=== PATIENT | female | born 1945 | race African-American/Black ===

== ENCOUNTER 2016-06-17 17:18 | Emergency (ER) | payer OTHER ==
[~2016-06-17] VITALS: Ht 152.4 cm; Wt 44.7 kg
[~2016-06-17 17:18] MED LIST: ALPR1TAB7 PO; LISI1TAB11 PO
--- NOTE | 2016-06-17 17:42 | NUR ---
DR MENESES AT THE BEDSIDE.
[2016-06-17 17:47] VITALS: BP 109/73
--- NOTE | 2016-06-17 17:48 | NUR ---
Patient discharged to home in stable conditon. Written and verbal after care instructions given. Patient verbalizes understanding of instructions.
== END 2016-06-17 17:59 | disposition home or self-care (01) ==
LOC: ER 17:21
DX: Z76.0 Encounter for issue of repeat prescription (principal); F41.9 Anxiety disorder, unspecified; I10 Essential (primary) hypertension
CPT/HCPCS: A4663

== ENCOUNTER 2016-07-23 16:15 | Emergency (ER) | payer OTHER ==
[~2016-07-23] VITALS: Ht 154.9 cm; Wt 47.6 kg
[2016-07-23] MEDS ORDERED: ALPRAZOLAM 0.25 MG TABLET PO ONE (17:30)
--- NOTE | 2016-07-23 17:52 | NUR ---
MSE COMPLETED, XANAX PO ADMINISTERED, PT D/C'D HOME, ACI/RX X1 GIVEN. PT AMBULATED W/O DIFF/TOOK ALL BELONGINGS.
[2016-07-23 17:53] VITALS: BP 112/64
[2016-07-23] MEDS ORDERED: ALPRAZOLAM 0.5 MG TABLET ONE (18:00)
== END 2016-07-23 17:54 | disposition home or self-care (01) ==
LOC: ER 16:15
DX: J32.9 Chronic sinusitis, unspecified (principal); F41.9 Anxiety disorder, unspecified; G47.00 Insomnia, unspecified; I10 Essential (primary) hypertension
CPT/HCPCS: 99284; A4663

== ENCOUNTER 2016-10-15 15:18 | Emergency (ER) | payer OTHER ==
[~2016-10-15] VITALS: Ht 154.9 cm; Wt 43.1 kg
--- NOTE | 2016-10-15 16:07 | NUR ---
Patient discharged to home in stable conditon. Written and verbal after care instructions given. Patient verbalizes understanding of instructions.
== END 2016-10-15 16:09 | disposition home or self-care (01) ==
LOC: ER 15:18
DX: Z76.0 Encounter for issue of repeat prescription (principal); I10 Essential (primary) hypertension; F41.9 Anxiety disorder, unspecified
CPT/HCPCS: A4663

== ENCOUNTER 2017-01-11 23:09 | Emergency (ER) | payer OTHER ==
--- NOTE | 2017-01-11 23:34 | NUR ---
PT DECIDED NOT TO BE SEEN.LWBT
== END 2017-01-11 23:35 | disposition left against medical advice (07) ==
LOC: ER 23:13
DX: Z53.21 Procedure and treatment not carried out due to patient leaving prior to being seen by health care provider (principal)

== ENCOUNTER 2017-01-24 13:20 | Emergency (ER) | payer OTHER ==
[~2017-01-24] VITALS: Ht 157.5 cm; Wt 46.3 kg
[2017-01-24] MEDS ORDERED: FERROUS SULFATE 325 MG TABLET PO (13:32)
[2017-01-24] MEDS: AZITHROMYCIN 250 MG TABLET PO ONE (15:51)
--- NOTE | 2017-01-24 15:52 | NUR ---
Patient discharged to home in stable conditon. Written and verbal after care instructions given. Patient verbalizes understanding of instructions. Stressed follow up with pmd or return to ER for worsening s/s.
[2017-01-24] MEDS ORDERED: AZITHROMYCIN 250 MG TABLET ONE ×2 (16:06→16:08)
== END 2017-01-24 15:53 | disposition home or self-care (01) ==
LOC: ER 13:24
DX: J40 Bronchitis, not specified as acute or chronic (principal); I10 Essential (primary) hypertension; F41.9 Anxiety disorder, unspecified; J84.10 Pulmonary fibrosis, unspecified
CPT/HCPCS: 71010; 99283; A4663; Q0144 ×2

== ENCOUNTER 2017-02-13 14:35 | Emergency (ER) | payer OTHER ==
[~2017-02-13] VITALS: Ht 157.5 cm; Wt 45.4 kg
[~2017-02-13 14:35] MED LIST changes: +FERROUS SULFATE 325 MG TABLET PO
--- NOTE | 2017-02-13 14:50 | NUR ---
MSE DONE BY DR MENESES AT BEDSIDE ROOM 04A.
--- NOTE | 2017-02-13 15:08 | NUR ---
DR MENESES MADE PATIENT AWARE OF TEST RESULTS. WILL BE DC HOME.
== END 2017-02-13 15:42 | disposition home or self-care (01) ==
LOC: ER 14:36
DX: F41.9 Anxiety disorder, unspecified (principal); R05 Cough; I10 Essential (primary) hypertension
CPT/HCPCS: 71010; A4663

== ENCOUNTER 2017-02-23 13:43 | Emergency (ER) | payer OTHER ==
[~2017-02-23] VITALS: Ht 157.5 cm; Wt 45.4 kg
--- NOTE | 2017-02-23 20:12 | NUR ---
Patient discharged to home in stable conditon. Written and verbal after care instructions given. Patient verbalizes understanding of instructions.
== END 2017-02-23 20:13 | disposition home or self-care (01) ==
LOC: ER 13:44
DX: R05 Cough (principal); I10 Essential (primary) hypertension
CPT/HCPCS: 71020; 99284; A4663

== ENCOUNTER 2017-03-07 14:30 | Emergency (ER) | payer OTHER ==
[~2017-03-07] VITALS: Ht 152.4 cm; Wt 44.5 kg
--- NOTE | 2017-03-07 15:05 | NUR ---
Pt was not found in ER lobby.
[2017-03-08] MEDS ORDERED: LISI10TA5 PO (11:36)
[2017-03-08] MEDS ORDERED: FERR-58 PO (11:36)
[2017-03-08] MEDS ORDERED: ATEN25TA PO (11:36)
== END 2017-03-07 15:27 | disposition left against medical advice (07) ==
LOC: ER 14:31
DX: Z53.21 Procedure and treatment not carried out due to patient leaving prior to being seen by health care provider (principal)
CPT/HCPCS: A4663

== ENCOUNTER 2017-03-08 07:44 | Emergency (ER) | payer OTHER ==
[~2017-03-08] VITALS: Ht 157.5 cm; Wt 44.5 kg
[2017-03-08] MEDS ORDERED: LISINOPRIL 10 MG TABLET PO ONE (08:15)
[2017-03-08] MEDS ORDERED: LISINOPRIL 10 MG TABLET ONE (08:37)
--- NOTE | 2017-03-08 08:52 | NUR ---
PT IN BED EATING SANDWICH. PT IS ON HEART MONITOR. PT IS SHOWING NO SIGNS OF DISTRESS.
--- NOTE | 2017-03-08 09:10 | NUR ---
PT BP REMAINS ELEVATED AFTER MEDS WERE GIVEN. NOTIFIED. PT STILL IN BED ON HEART MONITOR. WILL CONTINUE TO MONITOR. PT SHOWING NO SIGNS OF DISTRESS.
[2017-03-08] MEDS ORDERED: CLONIDINE HCL 0.1 MG TABLET PO ONE (09:30)
[2017-03-08] MEDS ORDERED: ALPRAZOLAM 0.25 MG TABLET PO ONE (09:30)
[2017-03-08] MEDS ORDERED: CLONIDINE HCL 0.1 MG TABLET ONE (09:39)
[2017-03-08] MEDS ORDERED: ALPRAZOLAM 0.25 MG TABLET ONE (09:41)
--- NOTE | 2017-03-08 09:48 | NUR ---
AT THE REQUEST OF THE PT, EMERGENCY CONTACT JESUS SCHULER WAS CALLED. NO ONE ANSWERED THE PHONE NUMBER PROVIDED. NO MESSAGE WAS LEFT DUE TO THE FACT THAT A DIFFERENT NAME OTHER THAN JESUS SCHULER WAS STATED ON THE VOICE MAIL GREETING.
[2017-03-08 11:04] VITALS: BP 127/71
--- NOTE | 2017-03-08 11:14 | NUR ---
PT REFUSES TO SIGN DC FORM. PT IS MEDICALLY CLEARED. MD NOTIFIED. MD WILL TALK TO PT. WAITING FOR FURTHER INSTRUCTIONS.
[2017-03-08] MEDS ORDERED: FERR-58 PO (11:36)
[2017-03-08] MEDS ORDERED: LISI10TA5 PO (11:36)
[2017-03-08] MEDS ORDERED: ATEN25TA PO (11:36)
--- NOTE | 2017-03-08 11:58 | NUR ---
PT JUST GOT XRAY FOR POSSIBLE JAW INJURY. CULTURIST, ULISES, NOW AT BEDSIDE WITH PT.
[2017-03-08 13:12] LABS: BASOPHILS % (AUTO) 0.5 % (0.0-2.0); EOSINOPHILS % (AUTO) 0.2 % (0.0-7.0); HEMATOCRIT 34.2 % (31.2-41.9); HEMOGLOBIN 10.9 g/dL (10.9-14.3); LYMPHOCYTES # (AUTO) 1.3 K/uL (20.0-40.0); LYMPHOCYTES % (AUTO) 21.9 % (20.5-51.5); MEAN CORPUSCULAR HEMOGLOBIN 22.8 uug (24.7-32.8); MEAN CORPUSCULAR HGB CONC 32 g/dL (32.3-35.6); MEAN CORPUSCULAR VOLUME 71.6 fL (75.5-95.3); MONOCYTES # (AUTO) 0.4 K/uL (2.0-10.0); MONOCYTES % (AUTO) 6.4 % (0.0-11.0); NEUTROPHILS # (AUTO) 4.3 K/uL (1.8-8.9); PLATELET COUNT (AUTO) 277 K/uL (179-408); RED BLOOD CELL COUNT(AUTO) 4.77 MIL/uL (3.63-4.92)
--- NOTE | 2017-03-08 13:16 | NUR ---
JAW XRAYS WERE NEG. PT ATE LUNCH AND NOW IS IN BED ASLEEP.
[2017-03-08 13:18] LABS: CARBON DIOXIDE 28 mmol/L (21-32); CHLORIDE 105 mmol/L (98-107); CREATININE 1.1 mg/dL (0.6-1.3); GLUCOSE 154 mg/dL (74-106); UREA NITROGEN, BLOOD 15 mg/dL (7-18)
[2017-03-08 13:24] LABS: ALANINE AMINOTRANSFERASE 47 U/L (14-59); ALKALINE PHOSPHATASE 72 U/L (50-136); ASPARTATE AMINOTRANSFERASE 39 U/L (15-37); BILIRUBIN,DIRECT 0.1 mg/dL (0.0-0.2); BILIRUBIN,TOTAL 0.4 mg/dL (0.2-1.0); TOTAL PROTEIN, SERUM 6.6 g/dL (6.4-8.2)
[2017-03-08 13:25] LABS: ACETAMINOPHEN < 2.0 ug/mL (10-30)
[2017-03-08 13:28] LABS: ETHANOL < 3 MG/DL (0-0)
--- NOTE | 2017-03-08 13:34 | NUR ---
11:45am: SW received a call from ED QING Dominguez requesting a SW consult, per Dr. Gibson's orders. SW arrived to ED and consulted with Dr. Gibson. SW then met with patient, who was in her assigned ED bed. Patient is a 72 year old female. Patient was receptive to talking with SW. Patient stated that she has been homeless since October 24, when "they kicked me out of my apartment". Patient reported that she lived in the same [facility] housing apartment for 7 years, but was evicted by the courts for what she claims was "changing the batteries in the smoke alarm" and "because I would go to the office to put in work orders instead of calling them". Patient reported that she has been in and out of shelters since then, and that "they keep on kicking me out of shelters too". Patient reported that she was kicked out of the [facility] in the middle of the night last night, and that "several men approached me on the street and I had to call the police". Patient claims that she spent the night on a chair in the police station ([place]) and that early this morning she took the train to come to [place]. Patient reports that all her belongings are at the police station. SW inquired about family, and patient stated that her sister has been stalking and following her for years; patient also claims that her sister has connections at all the winter shelters, which is why they keep on kicking her out. Patient also claimed that her sister follows her in a car when patient is walking on the street. Patient also reported that she was in the [place] ED yesterday, but left before being seen because she claims that the spud grader from her apartment building was in the bathroom and was stalking her. Patient went on to claim that she is not allowed to visit her Yaron Anderson and son Brenda because of a restraining order. When SW asked where her Yaron is right now, patient stated that he lives near [facility]. SW assessed for SI/HI, but patient denied both. Patient stated that "they have locked me up in a mental institution in the past", but could not recall date, time, reason. Patient reports that she has not slept in a few days, nor has she had food or her meds. QING Dominguez ordered patient a lunch tray. Patient wanted to go a [facility], but did not want to go to the winter shelters because she did not want to wait in the streets every day before going back to the [facility] at night. LUZMA explained how the [facility] program works, but patient was once again insistent on not wanting to go there because of the fact that she had to leave in the morning. Patient was cooperative with LUZMA, but became tearful during the interview. Based on patient's presentation of delusional and paranoid thoughts, unstable affect, and patient's self-report that she has not taken her medications for days, LUZMA consulted with Dr. Gibson and it was agreed to request an evaluation from the powerhouse electrician apprentice. LUZMA called Jaspal Garcia [phone] for an evaluation.
[2017-03-08 13:52] LABS: LYMPHOCYTES % (MANUAL) 25 % (20-40); MONOCYTES % (MANUAL) 5 % (2-10); NEUTROPHILS % (MANUAL) 69 % (42-75); PROMYELOCYTES % 1 %
--- NOTE | 2017-03-08 15:43 | NUR ---
LUZMA followed up with [facility] ([place], [place]) to check on the message that greeting card maker Jaspal Garcia had left them regarding voluntary inpatient psych admission for patient. LUZMA spoke with Janie at [phone]. Per [facility]'s request, patient's records were faxed to [facility] at [phone]. Awaiting response.
--- NOTE | 2017-03-08 16:33 | NUR ---
LUZMA called [facility] to follow-up on the referral this LUZMA sent. LUZMA spoke with Tawanda in Intake [phone] who stated that the case needed to be reviewed and they would then call back with a response.
--- NOTE | 2017-03-08 16:43 | NUR ---
Case endorsed to QING Dominguez. Sepi provided with information on contact name/number at [facility] intake (see SS notes). SW also provided Sepi with resources for homeless shelters, along with homeless resources for hot meals, showers, sack lunches, food pantries, and homeless access centers, which will be provided to patient upon discharge. A copy of these resources filed in patient's chart.
--- NOTE | 2017-03-08 18:07 | NUR ---
called [facility] to follow up. will call back Addendum: 03/08/17 at 1808 by BLAINE [phone]
[2017-03-08] MEDS ORDERED: AZITHROMYCIN 250 MG TABLET PO ONE (18:45)
--- NOTE | 2017-03-08 18:51 | NUR ---
called [facility]. danish will call back with update.
--- NOTE | 2017-03-08 19:04 | NUR ---
danish called [facility] and said there is room available,christiano morrison is dr. barbour
[2017-03-08] MEDS ORDERED: AZITHROMYCIN 250 MG TABLET ONE (19:16)
--- NOTE | 2017-03-08 19:28 | NUR ---
danish accepted the pt. called and gave report to portillo.called mikala with voucher to transfer the pt to [facility].
--- NOTE | 2017-03-08 19:41 | NUR ---
called taxi with voucher for p tto go [facility] on voluntarily basis.
== END 2017-03-08 20:00 | disposition home or self-care (01) ==
LOC: ER 07:44
DX: Z76.0 Encounter for issue of repeat prescription (principal); F22 Delusional disorders; F41.9 Anxiety disorder, unspecified; I10 Essential (primary) hypertension
CPT/HCPCS: 36415; 70100; 80048; 80076; 85025; 99285; A4663; G0480 ×2; G0481; Q0144; 70030-TC

== ENCOUNTER 2017-03-27 14:06 | Emergency (ER) | payer OTHER ==
[~2017-03-27] VITALS: Ht 162.6 cm; Wt 88.5 kg
[~2017-03-27 14:06] MED LIST changes: +ATEN25TA PO; +FERR-58 PO; -FERROUS SULFATE 325 MG TABLET PO; +LISI10TA5 PO; -LISI1TAB11 PO
--- NOTE | 2017-03-27 15:05 | NUR ---
PT WAS EVALUATED BY DR MENESES. PT WAS D/C TO HOME. D/C INSTRUCTIONS GIVEN TO THE PT.
[2017-03-27 15:06] VITALS: BP 136/84
== END 2017-03-27 15:07 | disposition home or self-care (01) ==
LOC: ER 14:06
DX: Z76.0 Encounter for issue of repeat prescription (principal); F41.9 Anxiety disorder, unspecified; I10 Essential (primary) hypertension
CPT/HCPCS: 99283; A4663

== ENCOUNTER 2017-04-10 16:19 | Emergency (ER) | payer OTHER ==
[~2017-04-10] VITALS: Ht 157.5 cm; Wt 45.4 kg
[~2017-04-10 16:19] MED LIST changes: -FERR-58 PO; +FERR325T24 PO
== END 2017-04-10 17:45 | disposition home or self-care (01) ==
LOC: ER 16:19
DX: J40 Bronchitis, not specified as acute or chronic (principal); I10 Essential (primary) hypertension
CPT/HCPCS: A4663

== ENCOUNTER 2017-04-29 11:57 | Emergency (ER) | payer OTHER ==
[~2017-04-29] VITALS: Ht 157.5 cm; Wt 45.4 kg
--- NOTE | 2017-04-29 12:19 | NUR ---
Patient discharged to home in stable conditon. Written and verbal after care instructions given. Patient verbalizes understanding of instructions.pt walks in steady gait.
== END 2017-04-29 12:28 | disposition home or self-care (01) ==
LOC: ER 11:57
DX: J20.9 Acute bronchitis, unspecified (principal); I10 Essential (primary) hypertension; Z79.899 Other long term (current) drug therapy
CPT/HCPCS: A4663

== ENCOUNTER 2017-05-09 15:36 | Emergency (ER) | payer OTHER ==
[~2017-05-09] VITALS: Ht 157.5 cm; Wt 45.4 kg
--- NOTE | 2017-05-09 16:00 | NUR ---
PATIENT WAS SEEN AND EXAMINED BY DR COLLADO. ROOM 04B
--- NOTE | 2017-05-09 17:30 | NUR ---
DR COLLADO MADE PATIENT AWARE OF TEST RESULTS WILL BE DC HOME.
[2017-05-09 17:55] VITALS: BP 139/81
--- NOTE | 2017-05-09 17:58 | NUR ---
Patient discharged to home in stable conditon. Written and verbal after care instructions given. Patient verbalizes understanding of instructions.
== END 2017-05-09 18:00 | disposition home or self-care (01) ==
LOC: ER 15:36
DX: J20.9 Acute bronchitis, unspecified (principal); I10 Essential (primary) hypertension; Z79.899 Other long term (current) drug therapy
CPT/HCPCS: 71045; 99283; A4663

== ENCOUNTER 2017-05-12 13:26 | Emergency (ER) | payer OTHER ==
[~2017-05-12] VITALS: Ht 157.5 cm; Wt 45.4 kg
--- NOTE | 2017-05-12 14:39 | NUR ---
Patient discharged to home in stable conditon. Written and verbal after care instructions given. Patient verbalizes understanding of instructions.
== END 2017-05-12 14:42 | disposition home or self-care (01) ==
LOC: ER 13:27
DX: I10 Essential (primary) hypertension (principal); Z76.0 Encounter for issue of repeat prescription; Z79.899 Other long term (current) drug therapy
CPT/HCPCS: A4663

== ENCOUNTER 2017-05-22 12:11 | Emergency (ER) | payer OTHER ==
[~2017-05-22] VITALS: Ht 157.5 cm; Wt 45.4 kg
[2017-05-22 13:12] VITALS: BP 129/71
--- NOTE | 2017-05-22 13:12 | NUR ---
Patient discharged to home in stable conditon. Written and verbal after care instructions given. Patient verbalizes understanding of instructions.pt walks in steady gait.
== END 2017-05-22 13:14 | disposition home or self-care (01) ==
LOC: ER 12:14
DX: J06.9 Acute upper respiratory infection, unspecified (principal); I10 Essential (primary) hypertension; Z79.899 Other long term (current) drug therapy
CPT/HCPCS: A4663

== ENCOUNTER 2017-06-16 14:16 | Emergency (ER) | payer OTHER ==
[~2017-06-16] VITALS: Ht 157.5 cm; Wt 45.4 kg
--- NOTE | 2017-06-16 15:00 | NUR ---
PATIENT WAS MSE BY DR ALEJANDRE AT BEDSIDE.
--- NOTE | 2017-06-16 15:10 | NUR ---
Patient discharged to home in stable conditon. Written and verbal after care instructions given. Patient verbalizes understanding of instructions.
[2017-06-16 15:13] VITALS: BP 109/62
== END 2017-06-16 15:16 | disposition home or self-care (01) ==
LOC: ER 14:16
DX: J06.9 Acute upper respiratory infection, unspecified (principal); I10 Essential (primary) hypertension; Z79.899 Other long term (current) drug therapy
CPT/HCPCS: A4663

== ENCOUNTER 2017-08-26 11:50 | Emergency (ER) | payer OTHER, MEDICAID ==
[~2017-08-26] VITALS: Ht 157.5 cm; Wt 45.4 kg
[2017-08-26] MEDS ORDERED: LORAZEPAM 0.5 MG TABLET PO ONE (12:30)
--- NOTE | 2017-08-26 12:37 | NUR ---
Patient discharged to home in stable conditon & brisk steady gait. Written and verbal after care instructions given to patient. Patient verbalizes understanding of instructions.
[2017-08-26] MEDS ORDERED: ALPRAZOLAM 0.5 MG TABLET ONE (12:39)
[2017-08-26] MEDS ORDERED: ALPRAZOLAM 0.25 MG TABLET PO ONE (12:45)
== END 2017-08-26 12:38 | disposition home or self-care (01) ==
LOC: ER 11:53
DX: Z76.0 Encounter for issue of repeat prescription (principal); I10 Essential (primary) hypertension; Z79.899 Other long term (current) drug therapy
CPT/HCPCS: A4663

== ENCOUNTER 2017-09-23 11:47 | Emergency (ER) | payer OTHER, MEDICAID ==
[~2017-09-23] VITALS: Ht 157.5 cm; Wt 45.4 kg
--- NOTE | 2017-09-23 12:07 | NUR ---
Patient discharged to home in stable conditon. Written and verbal after care instructions given. Patient verbalizes understanding of instructions.
== END 2017-09-23 12:09 | disposition home or self-care (01) ==
LOC: ER 11:50
DX: Z76.0 Encounter for issue of repeat prescription (principal); J32.9 Chronic sinusitis, unspecified; I10 Essential (primary) hypertension; Z79.899 Other long term (current) drug therapy
CPT/HCPCS: A4663

== ENCOUNTER 2017-11-29 13:10 | Emergency (ER) | payer OTHER, MEDICAID ==
[~2017-11-29] VITALS: Ht 157.5 cm; Wt 45.4 kg
--- NOTE | 2017-11-29 13:32 | NUR ---
MSE COMPLETED, ACI/RX X2 GIVEN. PT TOOK ALL BELONGINGS,AMBULATED W/O DIFF.
[2017-11-29 13:36] VITALS: BP 118/65
== END 2017-11-29 13:37 | disposition home or self-care (01) ==
LOC: ER 13:10
DX: J32.9 Chronic sinusitis, unspecified (principal); F41.9 Anxiety disorder, unspecified; Z76.0 Encounter for issue of repeat prescription; I10 Essential (primary) hypertension
CPT/HCPCS: A4663

== ENCOUNTER 2017-12-05 13:59 | Emergency (ER) | payer OTHER, MEDICAID ==
[~2017-12-05] VITALS: Ht 152.4 cm; Wt 45.4 kg
[2017-12-05] MEDS ORDERED: ALPRAZOLAM 0.25 MG TABLET PO ONE (15:15)
[2017-12-05] MEDS ORDERED: ALPRAZOLAM 0.25 MG TABLET ONE (15:18)
--- NOTE | 2017-12-05 15:25 | NUR ---
Patient discharged to home in stable conditon. Written and verbal after care instructions given. Patient verbalizes understanding of instructions.PT WALKS IN STEADY GAIT.
== END 2017-12-05 15:26 | disposition home or self-care (01) ==
LOC: ER 14:04
DX: F41.9 Anxiety disorder, unspecified (principal); I10 Essential (primary) hypertension
CPT/HCPCS: 99284; A4663

== ENCOUNTER 2018-01-20 13:41 | Emergency (ER) | payer OTHER, MEDICAID ==
[~2018-01-20] VITALS: Ht 157.5 cm; Wt 48.5 kg
[2018-01-20 14:44] LABS: BASOPHILS % (AUTO) 2.1 % (0.0-2.0); EOSINOPHILS # (AUTO) 0.1 K/uL (0.0-0.7); EOSINOPHILS % (AUTO) 3.7 % (0.0-7.0); HEMATOCRIT 36.7 % (31.2-41.9); HEMOGLOBIN 11.6 g/dL (10.9-14.3); LYMPHOCYTES % (AUTO) 42.7 % (20.5-51.5); MEAN CORPUSCULAR HEMOGLOBIN 23.4 uug (24.7-32.8); MEAN CORPUSCULAR HGB CONC 32 g/dL (32.3-35.6); MEAN CORPUSCULAR VOLUME 74.1 fL (75.5-95.3); MONOCYTES # (AUTO) 0.3 K/uL (2.0-10.0); MONOCYTES % (AUTO) 11.1 % (0.0-11.0); NEUTROPHILS % (AUTO) 40.4 % (38.5-71.5); PLATELET COUNT (AUTO) 220 K/uL (179-408); RED BLOOD CELL COUNT(AUTO) 4.95 MIL/uL (3.63-4.92); WHITE BLOOD COUNT (AUTO) 2.4 K/uL (3.8-11.8)
[2018-01-20 15:01] LABS: BILIRUBIN,DIRECT 0.1 mg/dL (0.0-0.2); BILIRUBIN,TOTAL 0.3 mg/dL (0.2-1.0); POTASSIUM 3.7 mmol/L (3.5-5.1)
--- NOTE | 2018-01-20 15:30 | NUR ---
Patient discharged to home in stable conditon. Written and verbal after care instructions given. Patient verbalizes understanding of instructions.PT WALKS IN STEADY GAIT.
== END 2018-01-20 15:38 | disposition home or self-care (01) ==
LOC: ER 13:41
DX: J45.909 Unspecified asthma, uncomplicated (principal); I10 Essential (primary) hypertension
CPT/HCPCS: 36415; 70030-TC; 71045; 85025; 85730; 93005; A4663

== ENCOUNTER 2018-04-08 12:01 | Emergency (ER) | payer OTHER, MEDICAID ==
[~2018-04-08] VITALS: Ht 157.5 cm; Wt 48.5 kg
[2018-04-08 13:15] LABS: BASOPHILS % (AUTO) 0.3 % (0.0-2.0); EOSINOPHILS # (AUTO) 0.1 K/uL (0.0-0.7); EOSINOPHILS % (AUTO) 0.7 % (0.0-7.0); HEMATOCRIT 33.6 % (31.2-41.9); HEMOGLOBIN 10.5 g/dL (10.9-14.3); LYMPHOCYTES % (AUTO) 9.5 % (20.5-51.5); MEAN CORPUSCULAR HEMOGLOBIN 23.2 uug (24.7-32.8); MEAN CORPUSCULAR HGB CONC 31 g/dL (32.3-35.6); MEAN CORPUSCULAR VOLUME 74.1 fL (75.5-95.3); MONOCYTES # (AUTO) 0.8 K/uL (2.0-10.0); MONOCYTES % (AUTO) 7.1 % (0.0-11.0); NEUTROPHILS # (AUTO) 9.1 K/uL (1.8-8.9); NEUTROPHILS % (AUTO) 82.4 % (38.5-71.5); PLATELET COUNT (AUTO) 268 K/uL (179-408); RED BLOOD CELL COUNT(AUTO) 4.53 MIL/uL (3.63-4.92)
[2018-04-08 13:21] LABS: CARBON DIOXIDE 28 mmol/L (21-32); CHLORIDE 103 mmol/L (98-107); CREATININE 1.4 mg/dL (0.6-1.3); GLUCOSE 83 mg/dL (74-106); POTASSIUM 4.3 mmol/L (3.5-5.1); UREA NITROGEN, BLOOD 17 mg/dL (7-18)
[2018-04-08 13:37] LABS: ALANINE AMINOTRANSFERASE 20 U/L (14-59); ALKALINE PHOSPHATASE 87 U/L (50-136); ASPARTATE AMINOTRANSFERASE 21 U/L (15-37); BILIRUBIN,DIRECT 0.1 mg/dL (0.0-0.2); BILIRUBIN,TOTAL 0.3 mg/dL (0.2-1.0); TOTAL PROTEIN, SERUM 6.9 g/dL (6.4-8.2)
[2018-04-08] MEDS ORDERED: IPRATROPIUM BROMIDE 0.5 MG/2.5 ML NEBU ONE (13:39)
[2018-04-08] MEDS ORDERED: ALBUTEROL SULFATE 2.5 MG/ 0.5 ML NEBU ONE (13:39)
[2018-04-08] MEDS ORDERED: ALBUTEROL SULFATE 2.5 MG/3 ML NEBU NEB ONE (13:45)
[2018-04-08 13:48] LABS: LYMPHOCYTES % (MANUAL) 19 % (20-40); MONOCYTES % (MANUAL) 4 % (2-10); NEUTROPHILS % (MANUAL) 77 % (42-75)
[2018-04-08] MEDS ORDERED: DOXYCYCLINE HYCLATE 100 MG TABLET ONE (14:08)
[2018-04-08] MEDS ORDERED: DOXYCYCLINE HYCLATE 100 MG TABLET PO ONE (14:15)
[2018-04-08] MEDS ORDERED: predniSONE 20 MG TABLET PO ONE (14:15)
[2018-04-08] MEDS ORDERED: predniSONE 20 MG TABLET ONE (14:24)
--- NOTE | 2018-04-08 14:28 | NUR ---
Pt resting with NAD noted, disposition pending.
--- NOTE | 2018-04-08 15:02 | NUR ---
IV removed. Catheter intact and site benign. Pressure and 4x4 gauze applied to site. No bleeding noted.
--- NOTE | 2018-04-08 15:02 | NUR ---
Patient discharged to home in stable conditon. Written and verbal after care instructions given. Patient verbalizes understanding of instructions.
== END 2018-04-08 15:03 | disposition home or self-care (01) ==
LOC: ER 12:01
DX: J20.9 Acute bronchitis, unspecified (principal); R79.89 Other specified abnormal findings of blood chemistry; I10 Essential (primary) hypertension; Z79.899 Other long term (current) drug therapy
CPT/HCPCS: 36415; 71045; 80048; 80076; 83605; 83880; 84484; 85025; 87040 ×2; 87400; 93005; 94640; 99284; J7512; 70030-TC; A4663; J3590

== ENCOUNTER 2018-05-25 13:53 | Inpatient (IN) | payer OTHER, MEDICAID ==
[~2018-05-25] VITALS: Ht 157.5 cm; Wt 46.3 kg
[2018-05-25] MEDS ORDERED: ASPIRIN 325 MG TABLET PO ONE (14:45)
[2018-05-25 15:00] LABS: BASOPHILS % (AUTO) 0.3 % (0.0-2.0); HEMATOCRIT 36.4 % (31.2-41.9); HEMOGLOBIN 11.1 g/dL (10.9-14.3); LYMPHOCYTES # (AUTO) 1.3 K/uL (20.0-40.0); LYMPHOCYTES % (AUTO) 9.8 % (20.5-51.5); MEAN CORPUSCULAR HEMOGLOBIN 23.4 uug (24.7-32.8); MEAN CORPUSCULAR HGB CONC 31 g/dL (32.3-35.6); MEAN CORPUSCULAR VOLUME 76.3 fL (75.5-95.3); MONOCYTES # (AUTO) 0.8 K/uL (2.0-10.0); MONOCYTES % (AUTO) 6.1 % (0.0-11.0); NEUTROPHILS # (AUTO) 10.8 K/uL (1.8-8.9); NEUTROPHILS % (AUTO) 83.8 % (38.5-71.5); PLATELET COUNT (AUTO) 297 K/uL (179-408); RED BLOOD CELL COUNT(AUTO) 4.77 MIL/uL (3.63-4.92); WHITE BLOOD COUNT (AUTO) 12.9 K/uL (3.8-11.8)
[2018-05-25 15:11] LABS: CARBON DIOXIDE 28 mmol/L (21-32); CHLORIDE 107 mmol/L (98-107); CREATININE 1.2 mg/dL (0.6-1.3); GLUCOSE 95 mg/dL (74-106); POTASSIUM 4.1 mmol/L (3.5-5.1); UREA NITROGEN, BLOOD 22 mg/dL (7-18)
[2018-05-25] MEDS ORDERED: ASPIRIN 325 MG TABLET ONE (15:18)
[2018-05-25 15:23] LABS: ALANINE AMINOTRANSFERASE 20 U/L (14-59); ALKALINE PHOSPHATASE 83 U/L (50-136); ASPARTATE AMINOTRANSFERASE 22 U/L (15-37); BILIRUBIN,DIRECT 0.1 mg/dL (0.0-0.2); BILIRUBIN,TOTAL 0.4 mg/dL (0.2-1.0); TOTAL PROTEIN, SERUM 7.4 g/dL (6.4-8.2)
--- NOTE | 2018-05-25 15:23 | NUR ---
PT IS IN ROOM #2A. DR NUGENT EVALUATED THE PT.
[2018-05-25] MEDS ORDERED: HYDROMORPHONE 1 MG/1 ML DISP.SYRIN IV PRN (17:15)
[2018-05-25] MEDS ORDERED: Z GUARD REMEDY PASTE 57 GM TUBE TOP PRN (17:15)
[2018-05-25] MEDS ORDERED: ONDANSETRON 4 MG/2 ML VIAL IV PRN (17:15)
[2018-05-25] MEDS ORDERED: ALBUTEROL SULFATE 2.5 MG/ 0.5 ML NEBU NEB PRN (17:15)
[2018-05-25] MEDS ORDERED: ZOLPIDEM 5 MG TABLET PO PRN (17:15)
[2018-05-25] MEDS ORDERED: MAGNESIUM HYDROXIDE 30 ML LIQUID UDC PO PRN (17:15)
[2018-05-25] MEDS ORDERED: ACETAMINOPHEN 325 MG TABLET PO PRN (17:15)
--- NOTE | 2018-05-25 17:18 | NUR ---
PT WAS TRANSFERED TO ROOM #315. REPORT WAS GIVEN TO CARDIOLOGY CLINICAL CONSULTANT.
[2018-05-25] MEDS ORDERED: NAPR-1009 PO (17:23)
[2018-05-25] MEDS ORDERED: QUET50TA PO (17:23)
[2018-05-25] MEDS ORDERED: BUDE10.2 IH (17:23)
[2018-05-25] MEDS ORDERED: ALPR1TAB2 PO (17:23)
[2018-05-25] MEDS ORDERED: PRED20TA PO (17:23)
[2018-05-25] MEDS ORDERED: LEVO5TAB13 PO (17:23)
[2018-05-25] MEDS ORDERED: ALBU8.5H8 IH (17:23)
[2018-05-25] MEDS ORDERED: ATEN25TA PO (17:23)
[2018-05-25 17:41] LABS: *BILIRUBIN,URIN NEGATIVE (NEGATIVE); *BLOOD, URINE NEGATIVE (NEGATIVE); *CLARITY,URINE CLEAR (CLEAR); *COLOR,URINE YELLOW (YELLOW); *KETONES,URINE NEGATIVE (NEGATIVE); *UROBILINOGEN,URINE 0.2 E.U./dl (NORMAL); LEUKOCYTE ESTERASE ,URINE NEGATIVE (NEGATIVE); NITRITE, URINE NEGATIVE (NEGATIVE); PH,URINE 5.5 (5.0-8.0); UGLUCOSE NEGATIVE (NEGATIVE)
[2018-05-25] MEDS ORDERED: Medication Not On Formulary EA (Alprazolam (Xanax) 1 MG) PO PRN (17:45)
[2018-05-25] MEDS ORDERED: Medication Not On Formulary EA (Levocetirizine Dihydrochloride 5 MG) PO PRN (17:45)
[2018-05-25] MEDS ORDERED: CETIRIZINE HCL 10 MG TABLET PO PRN (18:00)
[2018-05-25] MEDS ORDERED: Medication Not On Formulary EA (Quetiapine Fumarate (Seroquel) 50 MG) PO SCH (18:00)
[2018-05-25 18:10] VITALS: BP 162/71
[2018-05-25] MEDS ORDERED: CLONIDINE HCL 0.1 MG TABLET PO PRN (18:15)
[2018-05-25] MEDS: IV 1/2NS 1000 ML 1,000 ML IV PRN (18:45)
--- NOTE | 2018-05-25 19:25 | NUR ---
RECEIVED PT AWAKE, ALERT AND ORIENTEDX3. PT SHOWS NO SIGNS OF ACUTE DISTRESS. IV INTACT. CALL LIGHT WITHIN REACH. BED ALARM ON. SAFETY AND COMFORT PROVIDED. WILL CONTINUE TO MONITOR.
[2018-05-25] MEDS: QUETIAPINE FUMARATE 25 MG TABLET PO SCH (20:25)
[2018-05-25 20:33] VITALS: BP 131/47
[2018-05-25] MEDS: ALPRAZOLAM 0.5 MG TABLET PO PRN (21:30)
[2018-05-26 00:28] VITALS: BP 147/58
[2018-05-26 04:00] VITALS: BP 123/39
[2018-05-26] MEDS: PANTOPRAZOLE SODIUM 40 MG TABLET.DR PO SCH (06:06)
--- NOTE | 2018-05-26 06:20 | NUR ---
Pt slept intermittently. Pt shows no signs of distress.Iv intact and patent.Prescribed medication given and pt tolerated it well. Pt given Xanax at 2130 for anxiety. Pt tolerated it well. Safety and comfort provided. All needs are met.Will endorse accordingly to incoming nurse for continuity of care.
[2018-05-26 06:41] LABS: EOSINOPHILS % (AUTO) 0.6 % (0.0-7.0); LYMPHOCYTES # (AUTO) 1.1 K/uL (20.0-40.0); MONOCYTES # (AUTO) 0.4 K/uL (2.0-10.0)
[2018-05-26 06:52] LABS: ALANINE AMINOTRANSFERASE 17 U/L (14-59); ALKALINE PHOSPHATASE 43 U/L (50-136); ASPARTATE AMINOTRANSFERASE 14 U/L (15-37); BILIRUBIN,TOTAL 0.2 mg/dL (0.2-1.0); CARBON DIOXIDE 28 mmol/L (21-32); CHLORIDE 109 mmol/L (98-107); CHOLESTEROL 160 mg/dL (<200); CREATININE 0.9 mg/dL (0.6-1.3); GLUCOSE 85 mg/dL (74-106); HDL CHOLESTEROL 72 mg/dL (40-60); PHOSPHOROUS 2.8 mg/dL (2.5-4.9); TOTAL PROTEIN, SERUM 5.2 g/dL (6.4-8.2); TRIGLYCERIDES 103 MG/DL (30-150); UREA NITROGEN, BLOOD 17 mg/dL (7-18)
[2018-05-26 06:54] LABS: THYROID STIMULATING HORMONE 1.946 mIU/mL (0.358-3.740)
[2018-05-26 06:58] LABS: BASOPHILS % (AUTO) 0.2 % (0.0-2.0); LYMPHOCYTES % (AUTO) 21.7 % (20.5-51.5); MEAN CORPUSCULAR HEMOGLOBIN 23.5 uug (24.7-32.8); MEAN CORPUSCULAR HGB CONC 31 g/dL (32.3-35.6); MEAN CORPUSCULAR VOLUME 75.9 fL (75.5-95.3); MONOCYTES % (AUTO) 8.2 % (0.0-11.0); NEUTROPHILS # (AUTO) 3.5 K/uL (1.8-8.9); NEUTROPHILS % (AUTO) 69.3 % (38.5-71.5); RED BLOOD CELL COUNT(AUTO) 3.73 MIL/uL (3.63-4.92)
[2018-05-26 06:59] LABS: HEMATOCRIT 28.4 % (31.2-41.9); HEMOGLOBIN 8.8 g/dL (10.9-14.3); WHITE BLOOD COUNT (AUTO) 5.1 K/uL (3.8-11.8)
[2018-05-26 07:00] LABS: PLATELET COUNT (AUTO) 209 K/uL (179-408)
[2018-05-26] MEDS: HYDROCODONE/APAP 5-325MG TABLET PO PRN (07:06)
[2018-05-26 07:56] LABS: IRON, SERUM 66 ug/dL (50-175)
[2018-05-26] MEDS: ASPIRIN 81 MG TAB.CHEW PO SCH (08:04)
[2018-05-26] MEDS: FERROUS SULFATE 325 MG TABEC PO SCH (08:04)
[2018-05-26] MEDS: NAPROXEN 500 MG TABLET PO SCH ×2 (08:04→20:26)
[2018-05-26] MEDS: LISINOPRIL 10 MG TABLET PO SCH ×2 (08:05→21:00)
[2018-05-26] MEDS: ATENOLOL 25 MG TABLET PO SCH ×2 (08:06→21:00)
--- NOTE | 2018-05-26 08:07 | NUR ---
ATENOLOL HELD DUE TO LOW HR 57
[2018-05-26] MEDS: ALPRAZOLAM 0.5 MG TABLET PO PRN (08:11)
[2018-05-26] MEDS: IV 1/2NS 1000 ML 1,000 ML IV PRN (09:15)
[2018-05-26 11:18] VITALS: BP 107/43
--- NOTE | 2018-05-26 12:00 | NUR ---
patient c/o difficulty sleeping and some anxiety, reqeusted for xanax , medicated with good results. remains SB/SR on monitor
[2018-05-26 15:35] VITALS: BP 108/30
--- NOTE | 2018-05-26 17:26 | NUR ---
seen by dr caban for cardo consult made aware of cardiac rythm down to 38 non-sustained and changed patient status to medsurg. see notes.
--- NOTE | 2018-05-26 19:20 | NUR ---
Received patient lying in bed. AAOX4. In no acute distress. Denies any chest or SOB at this time. IV site on right FA intact and patent. IVF infusing. Needs assessed and attended to. Safety measure initiated and call vo within reach.
[2018-05-26] MEDS: QUETIAPINE FUMARATE 25 MG TABLET PO SCH (20:26)
[2018-05-26 20:32] VITALS: BP 108/40
--- NOTE | 2018-05-26 21:13 | NUR ---
Informed Dr. Ibarra regarding patient BP of 108/40, HR 69 and instructed this nurse to hold of on giving Atenolol and Lisinopril tonight. Order carried out.
[2018-05-27] MEDS: IV 1/2NS 1000 ML 1,000 ML IV PRN (00:08)
[2018-05-27] MEDS: ALPRAZOLAM 0.5 MG TABLET PO PRN (05:50)
[2018-05-27] MEDS: PANTOPRAZOLE SODIUM 40 MG TABLET.DR PO SCH (06:02)
--- NOTE | 2018-05-27 06:04 | NUR ---
AAOX4. In no acute distress. Complained of mild chest pain but tolerable per patient. Offered pain medication and refused at this time. Denies any SOB. IV site on right remains FA intact and patent. IVF infusing. Needs assessed and attended to. Safety measure maintained and call vo within reach.
[2018-05-27 06:19] VITALS: BP 155/57
[2018-05-27 06:46] LABS: CARBON DIOXIDE 26 mmol/L (21-32); CHLORIDE 108 mmol/L (98-107); CREATININE 0.9 mg/dL (0.6-1.3); GLUCOSE 88 mg/dL (74-106); POTASSIUM 4.1 mmol/L (3.5-5.1); UREA NITROGEN, BLOOD 19 mg/dL (7-18)
[2018-05-27 06:50] LABS: BASOPHILS % (AUTO) 0.3 % (0.0-2.0); EOSINOPHILS % (AUTO) 0.6 % (0.0-7.0); HEMATOCRIT 32.5 % (31.2-41.9); LYMPHOCYTES # (AUTO) 0.9 K/uL (20.0-40.0); LYMPHOCYTES % (AUTO) 14.3 % (20.5-51.5); MEAN CORPUSCULAR HEMOGLOBIN 23.6 uug (24.7-32.8); MEAN CORPUSCULAR HGB CONC 31 g/dL (32.3-35.6); MEAN CORPUSCULAR VOLUME 76.5 fL (75.5-95.3); MONOCYTES # (AUTO) 0.6 K/uL (2.0-10.0); MONOCYTES % (AUTO) 9.1 % (0.0-11.0); NEUTROPHILS # (AUTO) 4.6 K/uL (1.8-8.9); NEUTROPHILS % (AUTO) 75.7 % (38.5-71.5); PLATELET COUNT (AUTO) 236 K/uL (179-408); RED BLOOD CELL COUNT(AUTO) 4.25 MIL/uL (3.63-4.92)
--- NOTE | 2018-05-27 06:51 | NUR ---
INFORMATION SENT: SILVANO,UR-05/26,PROGRESS NOTES 4-1 INSURANCE NAME: [employer] FAX NUMBER: [phone] FAX SENT
--- NOTE | 2018-05-27 08:00 | NUR ---
awake alert and oriented x3, still c/o headache and mild chest pressure. vs WNL. afebrile
[2018-05-27] MEDS: ASPIRIN 81 MG TAB.CHEW PO SCH (08:43)
[2018-05-27] MEDS: HYDROCODONE/APAP 5-325MG TABLET PO PRN (08:44)
[2018-05-27] MEDS: NAPROXEN 500 MG TABLET PO SCH (08:44)
[2018-05-27] MEDS: FERROUS SULFATE 325 MG TABEC PO SCH (08:44)
[2018-05-27] MEDS: LISINOPRIL 10 MG TABLET PO SCH (08:44)
[2018-05-27] MEDS: ATENOLOL 25 MG TABLET PO SCH (08:45)
[2018-05-27 11:03] VITALS: BP 150/77
[2018-05-27 11:05] VITALS: BP 122/48
--- NOTE | 2018-05-27 14:10 | NUR ---
DISCHARGED HOME STABLE WITH FOLLOW-UP AND MEDICATION INSTRUCTION GIVEN
--- NOTE | 2018-05-28 07:24 | NUR ---
INFORMATION SENT: FACESHEET,DISCHARGE SUMMARY,PROGRESS NOTES 4-2 INSURANCE NAME: [employer] FAX NUMBER: [phone] FAX SENT
== END 2018-05-27 14:00 | disposition home or self-care (01) | DRG 392 ==
LOC: ER 13:54 → TELE3 17:09 → MEDSURG3 05-26 16:20
PROVIDERS: ADMIT Nurse Practitioner Acute Care; ATTEND Nurse Practitioner Acute Care
DX: K29.70 Gastritis, unspecified, without bleeding (principal); E44.0 Moderate protein-calorie malnutrition; Z68.1 Body mass index [BMI] 19.9 or less, adult; J32.9 Chronic sinusitis, unspecified; Z87.891 Personal history of nicotine dependence; Z79.899 Other long term (current) drug therapy; I10 Essential (primary) hypertension; E03.9 Hypothyroidism, unspecified; E78.5 Hyperlipidemia, unspecified; F41.9 Anxiety disorder, unspecified; J42 Unspecified chronic bronchitis; D63.8 Anemia in other chronic diseases classified elsewhere; E86.0 Dehydration; Z98.890 Other specified postprocedural states; R79.89 Other specified abnormal findings of blood chemistry; R91.8 Other nonspecific abnormal finding of lung field
CPT/HCPCS: 36415; 70030-TC; 71045; 83550; 83735; 84100; 84443; 85025; 85730; 93005; 93307; A4663; G0378; J3490

== ENCOUNTER 2018-08-10 14:37 | Emergency (ER) | payer OTHER, MEDICAID ==
[~2018-08-10] VITALS: Ht 157.5 cm; Wt 45.4 kg
[~2018-08-10 14:37] MED LIST changes: +ALBU8.5H8 IH; +ALPR1TAB2 PO; +BUDE10.2 IH; +LEVO5TAB13 PO; +NAPR-1009 PO; +PRED20TA PO; +QUET50TA PO
--- NOTE | 2018-08-10 14:50 | NUR ---
ADMIT PT IN RM 3A, 73 YO , AMBULATORY WITH A C/O COUGHING.NO APPARENT RESPIRATORY DISTRESS NOTED. O2SAT IS 99% ON RA. AWAKE AND ALERTX3. SEEN AND EXAMINED BY MD WITH NEW ORDERS.
[2018-08-10 15:52] LABS: BASOPHILS % (AUTO) 0.4 % (0.0-2.0); EOSINOPHILS # (AUTO) 0.1 K/uL (0.0-0.7); EOSINOPHILS % (AUTO) 1.2 % (0.0-7.0); HEMATOCRIT 33.2 % (31.2-41.9); HEMOGLOBIN 10.4 g/dL (10.9-14.3); LYMPHOCYTES # (AUTO) 0.9 K/uL (20.0-40.0); LYMPHOCYTES % (AUTO) 17.7 % (20.5-51.5); MEAN CORPUSCULAR HEMOGLOBIN 23.4 uug (24.7-32.8); MEAN CORPUSCULAR HGB CONC 31 g/dL (32.3-35.6); MONOCYTES # (AUTO) 0.5 K/uL (2.0-10.0); MONOCYTES % (AUTO) 9.5 % (0.0-11.0); NEUTROPHILS # (AUTO) 3.6 K/uL (1.8-8.9); NEUTROPHILS % (AUTO) 71.2 % (38.5-71.5); PLATELET COUNT (AUTO) 234 K/uL (179-408); RED BLOOD CELL COUNT(AUTO) 4.43 MIL/uL (3.63-4.92)
[2018-08-10 16:04] LABS: CARBON DIOXIDE 29 mmol/L (21-32); CHLORIDE 106 mmol/L (98-107); CREATININE 1.1 mg/dL (0.6-1.3); GLUCOSE 87 mg/dL (74-106); POTASSIUM 3.9 mmol/L (3.5-5.1); UREA NITROGEN, BLOOD 13 mg/dL (7-18)
[2018-08-10 16:17] LABS: ALANINE AMINOTRANSFERASE 21 U/L (14-59); ALKALINE PHOSPHATASE 90 U/L (50-136); ASPARTATE AMINOTRANSFERASE 18 U/L (15-37); BILIRUBIN,DIRECT 0.1 mg/dL (0.0-0.2); BILIRUBIN,TOTAL 0.2 mg/dL (0.2-1.0); TOTAL PROTEIN, SERUM 6.5 g/dL (6.4-8.2)
--- NOTE | 2018-08-10 17:00 | NUR ---
PT IS EATING HER DINNER WELL WITHOUT ANY PROBLEM. VSS.
[2018-08-10] MEDS ORDERED: ASPIRIN 325 MG TABLET PO ONE (18:15)
--- NOTE | 2018-08-10 18:35 | NUR ---
MEDICATED WITH ASPIRIN 325MG PO ORDERED.
[2018-08-10] MEDS ORDERED: ASPIRIN 325 MG TABLET ONE (18:40)
--- NOTE | 2018-08-10 18:40 | NUR ---
DISCHARGE INSTRUCTIONS GIVEN WITH GOOD UNDERSTANDING.
[2018-08-10 18:59] VITALS: BP 131/65
== END 2018-08-10 18:50 | disposition other institution (70) ==
LOC: ER 14:39
DX: R07.2 Precordial pain (principal); I10 Essential (primary) hypertension; F17.200 Nicotine dependence, unspecified, uncomplicated; Z79.899 Other long term (current) drug therapy
CPT/HCPCS: 36415; 70030-TC; 71045; 85025; 85730; 93005; A4663

== ENCOUNTER 2018-10-14 16:04 | Emergency (ER) | payer OTHER, MEDICAID ==
[~2018-10-14] VITALS: Ht 157.5 cm; Wt 43.5 kg
--- NOTE | 2018-10-14 16:40 | NUR ---
GIA HERNADEZ AT BEDSIDE FOR MSE.
[2018-10-14 16:54] VITALS: BP 120/72
--- NOTE | 2018-10-14 16:54 | NUR ---
Patient discharged to home in stable conditon. Written and verbal after care instructions given. Patient verbalizes understanding of instructions. ALL BELONGINGS W/ PT. PT SELF-AMBULATED W/O DIFFICULTY.
== END 2018-10-14 17:03 | disposition home or self-care (01) ==
LOC: ER 16:04
DX: J32.9 Chronic sinusitis, unspecified (principal); I10 Essential (primary) hypertension; F17.200 Nicotine dependence, unspecified, uncomplicated; Z79.899 Other long term (current) drug therapy
CPT/HCPCS: A4663

== ENCOUNTER 2019-03-20 16:27 | Emergency (ER) | payer OTHER, MEDICAID ==
[~2019-03-20] VITALS: Ht 157.5 cm; Wt 45.4 kg
--- NOTE | 2019-03-20 17:10 | NUR ---
Patient discharged to home in stable conditon. Written and verbal after care instructions given. Patient verbalizes understanding of instructions.pt walks in steady gait, no sign of distress.
== END 2019-03-20 17:10 | disposition home or self-care (01) ==
LOC: ER 16:27
DX: F41.9 Anxiety disorder, unspecified (principal); I10 Essential (primary) hypertension; F17.200 Nicotine dependence, unspecified, uncomplicated; Z76.0 Encounter for issue of repeat prescription; Z79.899 Other long term (current) drug therapy; Z79.1 Long term (current) use of non-steroidal anti-inflammatories (NSAID)
CPT/HCPCS: A4663

== ENCOUNTER 2019-04-04 11:14 | Emergency (ER) | payer OTHER, MEDICAID ==
[~2019-04-04] VITALS: Ht 157.5 cm; Wt 45.4 kg
--- NOTE | 2019-04-04 11:57 | NUR ---
Patient discharged to home in stable conditon. Written and verbal after care instructions given. Patient verbalizes understanding of instructions. patient ambulated with stable gait.
[2019-04-04 12:15] VITALS: BP 121/73
== END 2019-04-04 12:16 | disposition home or self-care (01) ==
LOC: ER 11:14
DX: F13.20 Sedative, hypnotic or anxiolytic dependence, uncomplicated (principal); B37.0 Candidal stomatitis; I10 Essential (primary) hypertension; F41.9 Anxiety disorder, unspecified; F17.200 Nicotine dependence, unspecified, uncomplicated; Z76.5 Malingerer [conscious simulation]; Z76.0 Encounter for issue of repeat prescription; Z79.899 Other long term (current) drug therapy
CPT/HCPCS: A4663

== ENCOUNTER 2019-10-13 12:37 | Emergency (ER) | payer OTHER, MEDICAID ==
[~2019-10-13] VITALS: Ht 154.9 cm; Wt 46.3 kg
--- NOTE | 2019-10-13 13:09 | NUR ---
Patient discharged to home in stable condition. Written and verbal after care instructions given. Patient verbalizes understanding of instructions. Stressed follow up or return to ER for worsening s/s.
== END 2019-10-13 13:10 | disposition home or self-care (01) ==
LOC: ER 12:37
DX: J01.90 Acute sinusitis, unspecified (principal); B96.89 Other specified bacterial agents as the cause of diseases classified elsewhere; Z76.0 Encounter for issue of repeat prescription; F17.200 Nicotine dependence, unspecified, uncomplicated; F41.9 Anxiety disorder, unspecified; Z79.899 Other long term (current) drug therapy; I10 Essential (primary) hypertension; Z20.828 Contact with and (suspected) exposure to other viral communicable diseases
CPT/HCPCS: 99283; U0003; A4663

== ENCOUNTER 2020-02-04 15:57 | Inpatient (IN) | payer OTHER, MEDICAID ==
[~2020-02-04] VITALS: Ht 157.5 cm; Wt 45.4 kg
--- NOTE | 2020-02-04 16:10 | NUR ---
PT WAS TRIAGED AND PLACED BACK IN THE ER WAITING ROOM. THERE ARE NO ER BEDS AVAILABLE AT THIS TIME.
[2020-02-04] MEDS ORDERED: GUAIFENESIN/CODEINE 5 ML LIQUID UDC PO ONE (21:00)
--- NOTE | 2020-02-04 21:00 | NUR ---
Patient roomed in 3A
[2020-02-04 21:43] LABS: BASOPHILS % (AUTO) 0.9 % (0.0-2.0); CREATININE 0.9 mg/dL (0.6-1.3); HEMATOCRIT 31.1 % (31.2-41.9); HEMOGLOBIN 9.8 g/dL (10.9-14.3); LYMPHOCYTES # (AUTO) 0.7 K/uL (20.0-40.0); LYMPHOCYTES % (AUTO) 28.1 % (20.5-51.5); MEAN CORPUSCULAR HEMOGLOBIN 22.7 uug (24.7-32.8); MEAN CORPUSCULAR HGB CONC 31 g/dL (32.3-35.6); MEAN CORPUSCULAR VOLUME 72.3 fL (75.5-95.3); MONOCYTES # (AUTO) 0.4 K/uL (2.0-10.0); MONOCYTES % (AUTO) 15.1 % (0.0-11.0); NEUTROPHILS # (AUTO) 1.3 K/uL (1.8-8.9); NEUTROPHILS % (AUTO) 53.9 % (38.5-71.5); PLATELET COUNT (AUTO) 196 K/uL (179-408); POTASSIUM 3.8 mmol/L (3.5-5.1); RED BLOOD CELL COUNT(AUTO) 4.31 MIL/uL (3.63-4.92); WHITE BLOOD COUNT (AUTO) 2.4 K/uL (3.8-11.8)
[2020-02-04] MEDS ORDERED: GUAIFENESIN/CODEINE 5 ML LIQUID UDC ONE (21:44)
[2020-02-04 21:56] LABS: BILIRUBIN,DIRECT 0.1 mg/dL (0.0-0.2); BILIRUBIN,TOTAL 0.3 mg/dL (0.2-1.0); TOTAL PROTEIN, SERUM 9.9 g/dL (6.4-8.2)
[2020-02-04 22:28] LABS: LYMPHOCYTES % (MANUAL) 31 % (20-40); MONOCYTES % (MANUAL) 11 % (2-10); NEUTROPHILS % (MANUAL) 58 % (42-75)
[2020-02-04] MEDS ORDERED: ASPIRIN 81 MG TAB.CHEW PO ONE (23:45)
--- NOTE | 2020-02-05 00:32 | NUR ---
Patient will be going to 308.
[2020-02-05] MEDS ORDERED: BENZONATATE 100 MG CAPSULE PO PRN (00:45)
[2020-02-05] MEDS ORDERED: DOCUSATE SODIUM 100 MG CAPSULE PO PRN (00:45)
[2020-02-05] MEDS ORDERED: ASPIRIN 81 MG TAB.CHEW ONE (00:45)
[2020-02-05] MEDS ORDERED: MAG HYDROX/AL HYDROX/SIMETH 30 ML LIQUID UDC PO PRN (00:45)
[2020-02-05] MEDS ORDERED: GUAIFENESIN/DEXTROMETHORPHAN 5 ML UDC PO PRN (00:45)
[2020-02-05] MEDS ORDERED: Medication Not On Formulary EA (Levocetirizine Dihydrochloride 5 MG) PO PRN (00:45)
[2020-02-05] MEDS ORDERED: ONDANSETRON 4 MG/2 ML VIAL IV PRN (00:45)
[2020-02-05] MEDS ORDERED: NITROGLYCERIN 0.4 MG/TAB BOTTLE SL PRN (00:45)
[2020-02-05] MEDS ORDERED: ACETAMINOPHEN 325 MG TABLET PO PRN (00:45)
[2020-02-05] MEDS ORDERED: MORPHINE SULFATE 2 MG/1 ML DISP.SYRIN IV PRN (00:45)
--- NOTE | 2020-02-05 01:01 | NUR ---
Report given to QING White
--- NOTE | 2020-02-05 01:31 | NUR ---
Patient transported to TELE in stable condition.
--- NOTE | 2020-02-05 01:35 | NUR ---
Pt came from ER C/O Chest pain and coughing for 2 months. Pt was given 162mg of Aspirin upon arrival in the ER. Pt denies any acute distress or pain at this time. NSR on tele monitor. V/S stable on room air. Skin is intact. Personal belongings checked and with the patient. PIV on RAC22 is intact. Safety measures in place. Call light within reach. Will continue with the plan of care.
[2020-02-05] MEDS ORDERED: ALBUTEROL SULFATE 2.5 MG/3 ML NEBU NEB PRN (01:45)
[2020-02-05 01:59] VITALS: BP 119/64
[2020-02-05 04:00] VITALS: BP 107/56
[2020-02-05] MEDS ORDERED: NAPROXEN 500 MG TABLET PO SCH (08:00)
[2020-02-05 08:15] VITALS: BP 128/65
[2020-02-05] MEDS: ENOXAPARIN SODIUM 40 MG/0.4 ML DISP.SYRIN SQ SCH ×2 (08:16→08:20)
[2020-02-05] MEDS ORDERED: predniSONE 20 MG TABLET PO SCH (09:00)
[2020-02-05] MEDS ORDERED: ASPIRIN 81 MG TAB.CHEW PO SCH (09:00)
[2020-02-05] MEDS ORDERED: ATENOLOL 25 MG TABLET PO SCH (09:00)
[2020-02-05] MEDS ORDERED: LISINOPRIL 20 MG TABLET PO SCH (09:00)
--- NOTE | 2020-02-05 10:48 | NUR ---
Pt decided to go AMA because she stated that she's feeling fine and stable. She also stated that she didn't want to lose her spot on the long term care that she is currently residing. Pt is aware and signed the AMA form. Both charge nurse and attending physician aware. V/S stable.
[2020-02-05] MEDS ORDERED: Medication Not On Formulary EA (Quetiapine Fumarate (Seroquel) 50 MG) PO SCH (18:00)
[2020-02-05] MEDS ORDERED: ATORVASTATIN 20 MG TABLET PO SCH (21:00)
[2020-02-05] MEDS ORDERED: QUETIAPINE FUMARATE 25 MG TABLET PO SCH (21:00)
== END 2020-02-05 11:00 | disposition left against medical advice (07) | DRG 313 ==
LOC: ER 16:00 → TELE3 02-05 01:09
PROVIDERS: ADMIT Nurse Practitioner Acute Care; ATTEND Nurse Practitioner Acute Care
DX: R07.89 Other chest pain (principal); R94.31 Abnormal electrocardiogram [ECG] [EKG]; F41.9 Anxiety disorder, unspecified; J44.9 Chronic obstructive pulmonary disease, unspecified; Z87.891 Personal history of nicotine dependence; I10 Essential (primary) hypertension; F99 Mental disorder, not otherwise specified
CPT/HCPCS: 36415; 70030-TC; 71045; 85025; 87040; 87400; 93005; A4663; G0378; J1650; J7512; U0003

== ENCOUNTER 2020-11-03 17:01 | Emergency (ER) | payer OTHER ==
[~2020-11-03] VITALS: Ht 152.4 cm; Wt 40.8 kg
[~2020-11-03 17:01] MED LIST changes: +LISI10TA29 PO; -LISI10TA5 PO
--- NOTE | 2020-11-03 17:18 | NUR ---
Dr Ballard at the bedside evaluating the pt.
[2020-11-03] MEDS ORDERED: ALPR1TAB7 PO (17:20)
[2020-11-03 17:25] VITALS: BP 109/78
== END 2020-11-03 17:26 | disposition home or self-care (01) ==
LOC: ER 17:01
DX: F41.9 Anxiety disorder, unspecified (principal); Z76.0 Encounter for issue of repeat prescription; I10 Essential (primary) hypertension; G89.29 Other chronic pain; M54.9 Dorsalgia, unspecified; Z79.899 Other long term (current) drug therapy
CPT/HCPCS: A4663

== ENCOUNTER 2020-12-30 13:00 | Emergency (ER) | payer OTHER ==
[~2020-12-30] VITALS: Ht 152.4 cm; Wt 37.2 kg
--- NOTE | 2020-12-30 13:19 | NUR ---
PT IS IN ROOM #1B. DR TAPIA EVALUATED THE PT.
[2020-12-30] MEDS ORDERED: FLUT9.9S NAS (13:21)
--- NOTE | 2020-12-30 13:25 | NUR ---
pt refused to have d/c v/s taken. pt was discharged, all paper work given to patient. Patient acknowledged instructoins.
== END 2020-12-30 13:28 | disposition home or self-care (01) ==
LOC: ER 13:00
DX: T78.40XA Allergy, unspecified, initial encounter (principal); J34.89 Other specified disorders of nose and nasal sinuses; X58.XXXA Exposure to other specified factors, initial encounter; G89.29 Other chronic pain; M54.9 Dorsalgia, unspecified; I10 Essential (primary) hypertension; F41.9 Anxiety disorder, unspecified; Z79.899 Other long term (current) drug therapy
CPT/HCPCS: A4663

== ENCOUNTER 2021-03-14 13:15 | Emergency (ER) | payer OTHER ==
[~2021-03-14] VITALS: Ht 157.5 cm; Wt 40.4 kg
[~2021-03-14 13:15] MED LIST changes: +FLUT9.9S NAS
--- NOTE | 2021-03-14 13:58 | NUR ---
PT EVALUATED BY DR KAUFFMAN. EKG DONE
== END 2021-03-14 14:27 | disposition home or self-care (01) ==
LOC: ER 13:15
DX: Z00.00 Encounter for general adult medical examination without abnormal findings (principal); E78.5 Hyperlipidemia, unspecified; I10 Essential (primary) hypertension; I25.2 Old myocardial infarction; J44.9 Chronic obstructive pulmonary disease, unspecified; I25.10 Atherosclerotic heart disease of native coronary artery without angina pectoris; F41.9 Anxiety disorder, unspecified; G47.00 Insomnia, unspecified; Z79.899 Other long term (current) drug therapy; G89.29 Other chronic pain; M54.9 Dorsalgia, unspecified
CPT/HCPCS: 93005; A4663

== ENCOUNTER 2021-03-30 13:27 | Emergency (ER) | payer OTHER ==
[~2021-03-30] VITALS: Ht 157.5 cm; Wt 39.9 kg
[2021-03-30] MEDS ORDERED: IOHEXOL 300MG/ML 100 ML INFUS..BTL ONE (13:56)
[2021-03-30] MEDS ORDERED: IV NORMAL SALINE 250 ML IV ONE (13:56)
[2021-03-30] MEDS ORDERED: SWABABLE VALVE TRANSFER SET EA MC ONE (13:56)
[2021-03-30 13:59] LABS: HEMATOCRIT 30.8 % (31.2-41.9); MEAN CORPUSCULAR HEMOGLOBIN 23.3 uug (24.7-32.8); MEAN CORPUSCULAR VOLUME 72.7 fL (75.5-95.3); PLATELET COUNT (AUTO) 226 K/uL (179-408)
[2021-03-30 14:12] LABS: POTASSIUM 4.4 mmol/L (3.5-5.1)
[2021-03-30 14:18] LABS: BILIRUBIN,TOTAL 0.1 mg/dL (0.2-1.0); TOTAL PROTEIN, SERUM 10.3 g/dL (6.4-8.2)
[2021-03-30] MEDS ORDERED: POLY119P2 PO (15:14)
[2021-03-30 15:27] VITALS: BP 123/70
== END 2021-03-30 15:45 | disposition home or self-care (01) ==
LOC: ER 13:27
DX: R14.0 Abdominal distension (gaseous) (principal); E78.5 Hyperlipidemia, unspecified; I25.2 Old myocardial infarction; I25.10 Atherosclerotic heart disease of native coronary artery without angina pectoris; F17.200 Nicotine dependence, unspecified, uncomplicated; G89.29 Other chronic pain; M54.9 Dorsalgia, unspecified; I10 Essential (primary) hypertension; J44.9 Chronic obstructive pulmonary disease, unspecified; F41.9 Anxiety disorder, unspecified; Z79.899 Other long term (current) drug therapy
CPT/HCPCS: 36415; 74177; 80053; 83690; 85025; 99285; Q9967; A4663; J7050

== ENCOUNTER 2022-07-28 15:19 | Emergency (ER) | payer OTHER ==
[~2022-07-28] VITALS: Ht 157.5 cm; Wt 44.0 kg
[~2022-07-28 15:19] MED LIST changes: +POLY119P2 PO
--- NOTE | 2022-07-28 15:39 | NUR ---
Akira Richards at bedside exam in progress.
--- NOTE | 2022-07-28 15:48 | NUR ---
PT DOES NOT REMEMBER HER HOME MEDICATION NAMES AND DOSAGES.
--- NOTE | 2022-07-28 16:28 | NUR ---
Pt updated on care plan by physician.
[2022-07-28] MEDS ORDERED: LEVO750T46 PO (16:34)
--- NOTE | 2022-07-28 16:42 | NUR ---
DCd instruction and prescription given to pt. VS: HR 88 SBP of 138/72 rr 14, saturation of 95% RA. No c/od pain. patient able to ambulate and was carrying a big lugage with her.
[2022-07-28] MEDS ORDERED: AZIT250T PO (16:46)
--- NOTE | 2022-07-28 16:49 | NUR ---
Patient remains in the room after been discharge.
--- NOTE | 2022-07-28 17:00 | NUR ---
Pt. finally out the room steady gait. dcd.
== END 2022-07-28 17:01 | disposition home or self-care (01) ==
LOC: ER 15:19
DX: J18.9 Pneumonia, unspecified organism (principal); J44.9 Chronic obstructive pulmonary disease, unspecified; F17.210 Nicotine dependence, cigarettes, uncomplicated; R07.89 Other chest pain; G89.29 Other chronic pain; M54.9 Dorsalgia, unspecified; Z79.2 Long term (current) use of antibiotics; Z79.899 Other long term (current) drug therapy
CPT/HCPCS: 71045; A4663